=== PATIENT | male | born 1960 | race African-American/Black ===

== ENCOUNTER 2023-09-22 16:12 | Emergency (ER) | payer MEDICARE, SELFPAY ==
[2023-09-22] VITALS (10 sets, daily range): BP systolic 142–172; BP diastolic 100–114; PULSE 112–125; RESP 15–27; TEMP 36.4–37; O2SAT 95–100
--- NOTE | ~2023-09-22 | CT_ITS ---
EXAMINATION: CT abdomen pelvis w con DATE: 09/22/2023 19:14 INDICATION: abd pain, vomiting, transaminitis TECHNIQUE: Computed tomography (CT) of the abdomen and pelvis was performed with 100 mL Omnipaque-350 intravenous contrast. Automated exposure control and iterative reconstruction technique were employe d. The dose-length product was 547.45 mGy-cm. COMPARISON: None. FINDINGS: Lower thorax: Coronary artery calcifications. Liver: Diffusely low density. Biliary/Gallbladder: Dilated gallbladder, without stones or inflammatory change. No bile duct dilatio n. Pancreas: No mass or duct dilation. Spleen: Normal. Adrenals:No mass. Kidneys: No suspicious mass, obstructing stone, or hydronephrosis. Simple right midpole cyst. Bilater al subcentimeter hypodensities, also likely represent cysts. Curvilinear right lower pole calcificati on, likely vascular. GI tract: Mild distal esophageal and gastric wall edema. No small or large bowel dilation. Normal larry endix. Mesentery/Peritoneum: No ascites, mass, or free air. Retroperitoneum: No mass. Atherosclerotic abdominal aortic and/or arterial calcifications. Pelvis: Pelvic organs are within normal limits. Soft Tissues: Soft tissues and body wall unremarkable. Bones: No acute osseous finding. IMPRESSION: Mild esophagitis/gastritis. Hepatic steatosis. Gallbladder hydrops without inflammatory change, or obstructing stone or mass. Correlate with biliary labs. Reviewed, dictated and finalized at location K. BASE COORDINATOR
--- NOTE | 2023-09-22 16:18 | ECG_ITS ---
Measurements Intervals Hilger Rate: 122 P: 62 MN: 177 QRS: -34 QRSD: 85 T: 72 QT: 340 QTc: 486 Interpretive Statements SINUS TACHYCARDIA LEFT AXIS DEVIATION DELAYED PRECORDIAL R/S TRANSITION NONSPECIFIC T-WAVE ABNORMALITY- DIFFUSE LEADS BASELINE ARTIFACT- II, III, AVR, AVF, V3 ABNORMAL ECG NO PREVIOUS ECG AVAILABLE FOR COMPARISON Electronically Signed On 09-23-2023 16:28:12 STRAP FOLDING MACHINE OPERATOR by Ronak Ann D.O.
[2023-09-22] MEDS: SODIUM CHLORIDE 0.9% IV 1,000 ML 999 ML IV CONT (17:44)
--- NOTE | 2023-09-22 17:45 | PC.NURSE ---
pt unable to urinate at this time
[2023-09-22 17:56] LABS: Basophils Absolute Auto 0.1 K/mm3 (0.0-0.1); Basophils Percent Auto 0.7 % (0.2-1.2); Hematocrit 40.1 % (42.0-52.0); Hemoglobin 14.6 g/dL (14.0-18.0); Immature Granulocyte Absolute 0.01 K/mm3 (0.00-0.031); Immature Granulocyte Percent A 0.1 % (0-0.5); Lymphocytes Percent Auto 22.3 % (18.3-44.2); Mean Corpuscular HGB Conc 36.4 g/dl (32-36); Mean Corpuscular Hemoglobin 29.9 pg (26-34); Mean Corpuscular Volume 82.2 fl (80-100); Mean Platelet Volume 8.6 fl (7.4-10.4); Monocytes Absolute Auto 0.4 K/mm3 (0.1-0.6); Monocytes Percent Auto 5.9 % (2.6-8.5); Neutrophils Absolute Auto 4.8 K/mm3 (1.3-6.7); Platelet Count Result 260 k/mm3 (150-375); Red Blood Count 4.88 M/mm3 (4.6-6.20); Red Cell Distribution Width 14.9 % (11.5-14.5); White Blood Count 6.7 K/mm3 (4.5-10.0)
[2023-09-22 18:06] LABS: Alanine Aminotransferase 53 U/L (6-50); Albumin Level 4.8 g/dL (3.5-5.1); Alkaline Phosphatase 57 U/L (38-126); Anion Gap 19 mmol/L (8-16); Aspartate Amino Transferase 106 U/L (17-59); Bilirubin,Total 1.9 mg/dL (0.2-1.3); Blood Urea Nitrogen 13 mg/dL (9-20); Calcium 8.6 mg/dL (8.4-10.2); Carbon Dioxide 18 mmol/L (22-30); Chloride 100 mmol/L (98-107); Estimated CRCL calculation 78 ml/min; Estimated Glomerular Filt Rate > 60; Glucose 138 mg/dL (65-110); Lipase 270 U/L (23-300); Potassium 3.6 mmol/L (3.4-5.0); Sodium 137 mmol/L (137-145)
--- NOTE | 2023-09-22 18:18 | ED.NAVMDI ---
HPI - Nausea/Vomiting/Diarrhea General Chief complaint: Nausea/Vomiting/Diarrhea Stated complaint: tachy, n/v Time Seen by Provider: 09/22/23 17:30 Source: patient Mode of arrival: EMS Limitations: no limitations History of Present Illness HPI Narrative: This is a 63 year old male that presents to the ER for nausea and vomiting. Ongoing over the last couple of hours. Reports some mild epigastric discomfort. He has not been able to keep any liquids down today. Reports he has not eaten today. Denies fevers or diarrhea. Further history obtained via his family members who were concerned for possible alcohol withdrawal Related Data Allergies Allergy/AdvReac Type Severity Reaction Status Date / Time No Known Allergies Allergy Verified 09/22/23 17:42 Review of Systems Review of Systems: CONSTITUTIONAL: Denies fever GASTROINTESTINAL: Reports abdominal pain, nausea, vomiting. Denies diarrhea. All systems reviewed & are unremarkable except as noted in HPI and below PMFSH Past Medical History Medical History (Updated 09/22/23 @ 22:30 by Comfort Javier PA-C) History of gastroesophageal reflux (GERD) History of hypertension Surgical History Surgical History (Updated 09/22/23 @ 18:24 by Comfort Javier PA-C) History of colonoscopy Social History Social History (Updated 09/22/23 @ 18:24 by Comfort Javier PA-C) Alcohol intake: current Substance use: never Exam Narrative: GENERAL: Well-appearing, well-nourished, and in no acute distress. HEAD: Normocephalic, atraumatic. EYES: EOMI. ENT: Nares clear, no rhinorrhea or epistaxis. Mucous membranes moist. Oropharynx without tonsillar hypertrophy exudate or other lesions. CHEST: Clear to auscultation. No respiratory distress. No wheezes rales or rhonchi HEART: Tachycardic, regular rhythm. No murmur heard. Normal peripheral pulses. ABDOMEN: Soft, nondistended, normal active bowel sounds. Mild tenderness to palpation in the RUQ/epigastrium, without guarding EXTREMITIES: Normal range of motion. No edema. SKIN: Warm, dry, no rash. NEURO: No focal deficits. Alert and oriented x3. PSYCH: Anxious Course Course Emergency Course: Patient and family updated on his workup. They prefer patient to be transferred to [facility] for further care of alcohol withdrawal Consultations Consultation #1: Dr. Mckeon accepts patient as transfer to [facility]. He will be awaiting bed placement Date: 09/22/23 Vital Signs Vital signs: Vital Signs Temperature 98.6 F 09/22/23 16:15 Pulse Rate 124 H 09/22/23 16:15 Respiratory Rate 18 09/22/23 16:15 Blood Pressure 154/103 H 09/22/23 16:15 Pulse Oximetry 96 09/22/23 16:15 Temperature 97.6 F 09/22/23 19:37 Pulse Rate 104 H 09/23/23 01:40 Respiratory Rate 16 09/23/23 01:40 Blood Pressure 143/89 H 09/23/23 01:40 Pulse Oximetry 98 09/23/23 01:40 MDM - Nausea/Vomiting/Diarrhea MDM Narrative Medical decision making narrative: Patient presents to the emergency department for nausea and vomiting, tachycardia, hypertension, anxiety. Patient symptoms consistent with likely alcohol withdrawal. CBC without concerning findings. Metabolic panel with mild transaminitis and hyperbilirubinemia. Lipase is normal. Urine without evidence of infection. CT abdomen pelvis shows mild esophagitis / gastritis. Also gallbladder hydrops without inflammatory change. Patient and family were updated on his workup and recommendation for admission for further management of alcohol withdrawal. They prefer he be transferred to [facility]. Dr. Mckeon accepts patient as transfer to [facility]. He will be awaiting bed placement Differential Diagnosis Differential diagnosis: Likely food poisoning, gastroenteritis, dehydration and other (electrolyte derangement, alcohol withdrawal, biliary colic, esophagitis) Lab Data Attestation: I reviewed the patient's lab results. 09/22/23 17:47 09/22/23 17:47
[2023-09-22] MEDS: ONDANSETRON INJ 4 MG/2 ML VIAL IV PUSH (18:29)
--- NOTE | 2023-09-22 18:32 | PC.NURSE ---
Pt declined straight cath at this time, requesting more time to attempt urinal u/a sample. Given urinal. NS finished infusing. Given call light.
[2023-09-22 19:03] LABS: Appearance Urine Clear (Clear); Bacteria Urine None Seen /hpf; Bilirubin Urine Negative (Negative); Blood Urine Trace (Negative); Color Urine Dark Yellow (Yellow); Glucose Urine UA Negative (Negative); Ketones Urine 1+ mg/dL (Negative); Leukocyte Esterase Ur Negative LEU/UL (Negative); Need Manual Microscopic Reviewed; Nitrate Urine Negative (Negative); Protein Urine 1+ mg/dL (Negative); RBC Urine 0-2 /hpf (0-2); Specific Grav Ur 1.019 (1.001-1.035); Squamous Epithelial Cell Urine None seen /hpf (Few); WBC Urine 0-5 /hpf; pH Urine 5.5 (5.0-9.0)
[2023-09-22 19:04] LABS: Add Urine Microscopic? YES
[2023-09-22] MEDS: PANTOPRAZOLE SODIUM IV 40 MG VIAL IV PUSH (19:40)
[2023-09-22] MEDS: LORazepam INJ (*CRX) 2 MG/ML VIAL 1 MG IV PUSH ×2 (20:15→21:38)
[2023-09-22 21:46] LABS: Glucose Point of Care 128 mg/dl (65-105)
[2023-09-22 21:53] LABS: Ethanol < 10 mg/dL (<10)
[2023-09-22 22:04] LABS: Magnesium 2.2 mg/dL (1.6-2.3)
[2023-09-22] MEDS: THIAMINE HCL INJ 100 MG, FOLIC ACID INJ 1 MG, MAGNESIUM SULFATE INJ 1 GM in LACTATED RI... IV CONT (22:07)
[2023-09-22] MEDS: LORazepam INJ (*CRX) 2 MG/ML VIAL IV PUSH (22:48)
--- NOTE | 2023-09-22 22:51 | PC.NURSE ---
Patient was still shaky and began c/o neck pain. Notified EDP NINA Moyer who advised to give 2mg Ativan PRN IVP.
--- NOTE | 2023-09-23 00:13 | PC.NURSE ---
Patient called out to nursing station and advised his abdomen was hurting. Upon entering the room nursing staff was told by patient that his stomach was in knots and his neck hurt. EDP NINA Moyer notified.
[2023-09-23] MEDS: diphenhydrAMINE HCl INJ 50 MG/ML VIAL 25 MG IV PUSH (01:18)
[2023-09-23] MEDS: METOCLOPRAMIDE HCL INJ 10 MG/2 ML VIAL IV PUSH (01:18)
[2023-09-23 01:40] VITALS: BP 143/89; PULSE 104; RESP 16; O2SAT 98
--- NOTE | 2023-09-23 02:15 | PC.NURSE ---
Attempted to call patient's niece per request of transfer process. No answer.
--- NOTE | 2023-09-23 02:25 | PC.NURSE ---
Attempted to call patient's niece again. No answer again.
[2023-09-23 02:37] VITALS: BP 148/95; PULSE 99; RESP 16; TEMP 36.8; O2SAT 100
== END 2023-09-23 02:46 | disposition short-term general hospital (02) ==
PROVIDERS: Emergency Provider Physician Assistant
DX: K20.90 Esophagitis, unspecified without bleeding (principal); F10.239 Alcohol dependence with withdrawal, unspecified; Y90.9 Presence of alcohol in blood, level not specified; I10 Essential (primary) hypertension
CPT/HCPCS: 36415; 74177; 80053; 80307; 81001; 82948; 83690; 83735; 85025; 93005; 96361; 96365; 96366; 96375; 96376; 99285; C9113; J1200; J2060; J2405; J2765; J3411; J3475; J7030; J7120; Q9967